=== PATIENT | female | born 1985 | race Two or more races ===

== ENCOUNTER 2020-03-13 16:42 | Emergency (ER) | payer OTHER ==
[~2020-03-13] VITALS: Ht 162.6 cm; Wt 59.1 kg
[2020-03-13] MEDS ORDERED: ondansetron/PF 4mg/2ml inj IV ONE (17:20)
[2020-03-13] MEDS ORDERED: morphine 4 MG/ML inj SYRINge IV ONE (17:20)
--- NOTE | 2020-03-13 17:26 | NUR ---
pt gave verbal consent to update , Alhaji, ([phone]) which was provided.
[2020-03-13 17:41] LABS: BASOPHILS # (AUTO) 0.1 X10'3 (0-0.2); BASOPHILS % (AUTO) 0.7 % (0-1); EOSINOPHILS # (AUTO) 0.1 X10'3 (0-0.9); EOSINOPHILS % (AUTO) 0.5 % (0-6); HEMATOCRIT 39.5 % (35.0-45.0); HEMOGLOBIN 13.2 g/dl (12.0-16.0); LYMPHOCYTES # (AUTO) 0.9 X10'3 (1.1-4.8); LYMPHOCYTES % (AUTO) 6.9 % (21-51); MEAN CORPUSCULAR HEMOGLOBIN 28.1 PG (27.0-31.0); MEAN CORPUSCULAR HGB CONC 33.4 g/dL (33.0-36.5); MEAN CORPUSCULAR VOLUME 84.2 FL (78-98); MEAN PLATELET VOLUME 7.3 FL (7.4-10.4); MONOCYTES # (AUTO) 0.5 X10'3 (0-0.9); MONOCYTES % (AUTO) 3.5 % (2-12); NEUTROPHILS # (AUTO) 11.8 X10'3 (1.8-7.7); NEUTROPHILS % (AUTO) 88.4 % (42-75); PLATELET COUNT 219 X10'3 (140-440); RED BLOOD COUNT 4.69 X10'6 (4.20-5.60); RED CELL DISTRIBUTION WIDTH 13.2 % (11.5-14.5); WHITE BLOOD COUNT 13.4 X10'3 (4.5-11.0)
[2020-03-13] MEDS ORDERED: normal saline 1000ml 1,000 ML IV ONE (17:45)
[2020-03-13 17:56] LABS: ALANINE AMINOTRANSFERASE 20 U/L (12-78); ALBUMIN/GLOBULIN RATIO 1.1 (1.1-1.5); ALKALINE PHOSPHATASE 60 IU/L (46-116); ANION GAP 10 (8-16); ASPARTATE AMINO TRANSFERASE 20 U/L (10-37); BILIRUBIN,TOTAL 0.3 MG/DL (0.1-1.0); BLOOD UREA NITROGEN 14 MG/DL (7-18); BUN/CREATININE RATIO 16.7 (6.6-38.0); CHLORIDE 106 MMOL/L (99-107); CREATININE 0.84 MG/DL (0.40-0.90); GLUCOSE 118 MG/DL (70-104); POTASSIUM 4.1 MMOL/L (3.5-5.1); SODIUM 140 MMOL/L (135-145); TOTAL CARBON DIOXIDE 24.2 MMOL/L (24-32); TOTAL PROTEIN 7.6 G/DL (6.4-8.2); eGFR 78 ML/MIN
[2020-03-13 18:02] LABS: BETA HCG,QUANTITATIVE < 1.0 mIU/ml; LIPASE 180 U/L (73-393)
[2020-03-13 18:31] LABS: URINE HCG NEGATIVE (NEG)
[2020-03-13 18:38] LABS: CLARITY,URINE CLOUDY (Clear); COLOR,URINE YELLOW (Yellow); GLUCOSE, URINE NEGATIVE (Neg); KETONES,URINE NEGATIVE (Neg); LEUKOCYTE ESTERASE ,URINE NEGATIVE (Neg); NITRITES, URINE NEGATIVE (Neg); OCCULT BLOOD,URINE LARGE (Neg); PH,URINE 8.5 (4.8-8.0); PROTEIN,URINE NEGATIVE (Neg)
[2020-03-13 18:45] VITALS: BP 107/68
[2020-03-13 18:45] LABS: UA COLLECTION TYPE VOIDED
[2020-03-13 18:46] LABS: BACTERIA,URINE FEW /HPF (Neg); RBC,URINE 50-100 /HPF (0-2); WBC,URINE NONE SEEN /HPF (0-4)
[2020-03-13 18:47] LABS: AMORPHOUS PHOSPHATES 1+; SQUAMOUS EPITHELIAL CELL,UR FEW /LPF (FEW)
[2020-03-13] MEDS ORDERED: ketorolac trometh. 30mg/ml inj. IV ONE (18:55)
[2020-03-13] MEDS ORDERED: FLO0.4C PO (19:13)
[2020-03-13] MEDS ORDERED: HYDR-4383 PO (19:13)
[2020-03-13] MEDS ORDERED: ONDA4TAB6 PO (19:15)
== END 2020-03-13 19:39 | disposition home or self-care (01) ==
LOC: ER 16:45 → EDBD 16:45 → ER 19:39
DX: N20.9 Urinary calculus, unspecified (principal); R10.31 Right lower quadrant pain; R11.2 Nausea with vomiting, unspecified; Z79.899 Other long term (current) drug therapy; Z91.011 Allergy to milk products
CPT/HCPCS: 36415; 74176; 80053; 81001; 81025; 83690; 84702; 85025; 96361; 96374; 96375; 99284; J1885; J2270; J2405; J7030